=== PATIENT | male | born 1965 | race Caucasian/White ===

== ENCOUNTER 2022-09-12 07:44 | Emergency (ER) | payer OTHER, SELFPAY ==
[2022-09-12 08:03] VITALS: BP 146/61; PULSE 81; RESP 18; TEMP 36.4; O2SAT 97; BMI 59.3
[2022-09-12 08:11] VITALS: BP 146/72; PULSE 77; RESP 20; O2SAT 94
--- NOTE | 2022-09-12 08:16 | XR_ITS ---
WS: [id number] Exam: XR knee RT 3V* [id number] Date/Time of Exam: 09/12/2022 8:23 AM Reason For Exam: fall No acute fracture or dislocation. Moderate degenerative change of the medial lateral joint compartmen ts. Chondrocalcinosis of the lateral meniscus. Marked spurring of the posterior patella. No joint eff usion. XR/XR knee RT 3V* [id number] IMPRESSION: 1. Moderate tricompartmental DJD. No acute fracture or dislocation.
--- NOTE | 2022-09-12 08:16 | XR_ITS ---
WS: [id number] Exam: XR elbow RT min 3V* [id number] Date/Time of Exam: 09/12/2022 8:23 AM Reason For Exam: fall No fracture or dislocation noted. Joint structures are well-maintained. No joint effusion. Normal sof t tissues. XR/XR elbow RT min 3V* [id number] IMPRESSION: 1. Negative right elbow.
[2022-09-12 08:48] LABS: Basophils % 0.6 %; Eosinophils # 0.2 10^3/uL (0.0-0.8); Eosinophils % 3.2 %; Hematocrit 42.1 % (42.0-52.0); Hemoglobin 12.8 g/dL (11.7-16.6); Lymphocytes % 18.3 %; Mean Corpuscular HGB Conc 30.4 g/dL (30.0-36.0); Mean Corpuscular Hemoglobin 25.1 pg (28.0-34.0); Mean Corpuscular Volume 82.5 fl (80-94); Mean Platelet Volume 9.7 fL (7.4-10.4); Monocytes # 0.4 10^3/uL (0.2-0.9); Monocytes % 8.2 %; Neutrophils # 3.64 10^3/uL (1.8-7.7); Neutrophils % 69.3 %; Nucleated Red Blood Cells % 0 %; Platelet Count 279 10^3/cmm (130-400); Red Cell Distribution Width 13.5 % (12.1-15.1); White Blood Count 5.3 10^3/uL (4.0-10.0)
--- NOTE | 2022-09-12 08:53 | PC.NURSE ---
report given to Shreya to assume care
[2022-09-12] MEDS: dexamethasone 10 mg/mL INJ IVP (08:56)
--- NOTE | 2022-09-12 09:03 | W.ED.BACK ---
HPI - Back Pain/Injury General: Chief Complaint: Back Pain/Injury Stated Complaint: fall, leg and arm pain Time Seen by Provider: 09/12/22 07:45 Source: patient Mode of arrival: other (stretcher) History of Present Illness: 57-year-old male presents to the emergency room with complaints of back pain and a fall. He was coming to the emergency room with chronic back pain that had worsened when he was trying get out of his car he got his foot caught in the car and he fell on the ground hurt his right knee and his right elbow. He did not strike his head did not lose consciousness patient is super morbidly obese required the help of multiple staff members to get him off the ground and onto a gurney when he was wheeled to the emergency room. Denies any other injuries or any other problems has not had difficulty with bowel or bladder no difficulty chest or abdominal pain. MD elicited complaint: back pain and fall Pertinent past history: prior back pain Onset (ago): hour(s) Timing: constant Severity: moderate Similar Symptoms Previously: Yes Quality: aching Location: lumbar spine Radiation: none Exacerbating factors: none Relieving factors: none Associated symptoms: Deny abdominal pain, arthralgias, chills, change in bowel habits, difficulty walking, dysuria, fatigue, fecal incontinence, fever(s), hematuria, myalgias, nausea, numbness, syncope, tingling/numbness/burning, urinary frequency, urinary urgency, vomiting or weakness Review of Systems Const: Denies: fever(s), chills, fatigue or malaise ENMT: Denies: throat pain, ear or mastoid pain, nasal discharge or nasal congestion Card: Denies: chest pain or syncope Resp: Denies: dyspnea, productive cough or non-productive cough GI: Denies: abdominal pain, nausea, vomiting, fecal incontinence or change in bowel habits : Denies: dysuria, urinary frequency, urinary urgency or hematuria Skin/Breast: Denies: rash or pruritus Neuro: Denies: difficulty walking PFS ED PFSH: Medical History Chronic back pain Morbid obesity Physical Exam Const: GENERAL APPEARANCE: cooperative and comfortable ORIENTATION/CONSCIOUSNESS: Yes awake, Yes oriented to person, Yes oriented to place and Yes oriented to time HENMT: COMMON NORMALS: normocephalic, atraumatic and hearing grossly normal bilaterally HEAD & SCALP: normocephalic and atraumatic Resp: COMMON NORMALS: normal respiratory effort, No retractions, No use of accessory muscles and clear to auscultation bilaterally AUSCULTATION: clear to auscultation bilaterally Cardio: COMMON NORMALS: regular rate, regular rhythm and No murmurs present (Cardio) RATE: regular rate RHYTHM: regular rhythm GI: COMMON NORMALS: Soft to palpation and No hepatosplenomegaly present AUSCULTATION: Yes normoactive bowel sounds PALPATION: Yes Soft to palpation, No Tenderness to palpation present (GI), No Guarding due to palpation present (GI) and Yes No hepatosplenomegaly present Extremity: COMMON NORMALS: normal to inspection, capillary refill normal, no clubbing, cyanosis or edema, no calf tenderness and no pedal edema Neuro: SENSORIUM/ORIENTATION: Yes oriented to person, Yes oriented to place and Yes oriented to time OTHER: Sensation lower extremities normal dorsal and plantarflex strength 5 of 5 Skin: COMMON NORMALS: no rashes or lesions noted GENERAL SKIN EXAM: no rashes or lesions noted Course Vital Signs: Vital signs: Vital Signs Temperature 97.5 F L 09/12/22 08:03 Pulse Rate 86 09/12/22 10:11 Respiratory Rate 20 H 09/12/22 09:55 Blood Pressure 146/72 09/12/22 08:11 Pulse Oximetry 93 09/12/22 10:11 Oxygen Delivery Me thod 09/12/22 10:11 MDM - Back Pain/Injury Medical Decision Making Patient initially was brought in on a gurney he was able to get up and walk. He was upset that he was not being given what he felt was appropriate narcotics discussed that this is a chronic problem he was demanding Dilaudid states he is allergic to morphine we did give him morphine with some Benadryl he had no allergic reaction at all. He declined other medications. Discharge home on Lyrica prednisone. He states he cannot take NSAIDs so advised him to take Tylenol instructional manager will offer him referral to orthopedic spine surgery Medical Records I reviewed the patient's medical records. Labs I reviewed the patient's lab results. 09/12/22 08:40 09/12/22 08:40 Radiology Impressions Elbow X-Ray 09/12/22 08:16 IMPRESSION: 1. Negative right elbow. Knee X-Ray 09/12/22 08:16 IMPRESSION: 1. Moderate tricompartmental DJD. No acute fracture or dislocation. Laboratory Results WBC 5.3 10^3/uL (4.0-10.0) 09/12/22 08:40 RBC 5.10 10^6/uL (4.1-5.3) 09/12/22 08:40 Hgb 12.8 g/dL (11.7-16.6) 09/12/22 08:40 Hct 42.1 % (42.0-52.0) 09/12/22 08:40 MCV 82.5 fl (80-94) 09/12/22 08:40 MCH 25.1 pg (28.0-34.0) L 09/12/22 08:40 MCHC 30.4 g/dL (30.0-36.0) 09/12/22 08:40 RDW 13.5 % (12.1-15.1) 09/12/22 08:40 Plt Count 279 10^3/cmm (130-400) 09/12/22 08:40 MPV 9.7 fL (7.4-10.4) 09/12/22 08:40 Neut % (Auto) 69.3 % 09/12/22 08:40 Lymph % (Auto) 18.3 % 09/12/22 08:40 [place] % (Auto) 8.2 % 09/12/22 08:40 Eos % (Auto) 3.2 % 09/12/22 08:40 Baso % (Auto) 0.6 % 09/12/22 08:40 Neut # (Auto) 3.64 10^3/uL (1.8-7.7) 09/12/22 08:40 Lymph # (Auto) 1.0 10^3/uL (0.8-4.8) 09/12/22 08:40 [place] # (Auto) 0.4 10^3/uL (0.2-0.9) 09/12/22 08:40 Eos # (Auto) 0.2 10^3/uL (0.0-0.8) 09/12/22 08:40 Baso # (Auto) 0.0 10^3/uL (0.0-0.1) 09/12/22 08:40 Nucleated RBC % (auto) 0 % 09/12/22 08:40 Nucleated RBCs # 0.0 /100WBC 09/12/22 08:40 Sodium 134 mmol/L (136-145) L 09/12/22 08:40 Potassium 4.2 mmol/L (3.5-5.1) 09/12/22 08:40 Chloride 93 mmol/L (98-107) L 09/12/22 08:40 Carbon Dioxide 28 mmol/L (22-29) 09/12/22 08:40 Anion Gap 17.2 (5-19) 09/12/22 08:40 BUN 15 mg/dL (6-20) 09/12/22 08:40 Creatinine 0.9 mg/dL (0.7-1.2) 09/12/22 08:40 GFR Calculation 87.0 mL/min (90-130) L 09/12/22 08:40 Glucose 271 mg/dL (65-115) H 09/12/22 08:40 Calculated Osmolality 288 mOsm/kg (285-295) 09/12/22 08:40 Calcium 8.9 mg/dL (8.5-10.5) 09/12/22 08:40 Discharge Plan Discharge Patient Disposition: Home Clinical Impression: Chronic back pain, Fall, Drug-seeking behavior Condition: Stable Prescriptions: New tizanidine 4 mg capsule 4 mg PO Q6H PRN (Reason: muscle spasticity) Qty: 20 0RF Rx Instructions: do not exceed 3 doses per 24 hrs Lyrica 75 mg capsule 75 mg PO BID Qty: 60 0RF prednisone 20 mg tablet 20 mg PO TID Qty: 15 0RF Rx Instructions: 1 p.o. 3 times daily x3 days, 1 p.o. twice daily x2 days, 1 p.o. daily x2 days Discharge Orders: Discharge ED (Routine); Ordered 09/12/22 Ordered By: Tan Mckeon Discharge Diet: Usual diet Discharge Activity: Increase activity as tolerated Patient Instructions: Opioid Safety, Pain Management Activity Restrictions/Additional Instructions: You are seen today for chronic back pain and a fall. X-rays of your knee and your elbow were negative. Imaging of your back was not done in the emergency room as studies have shown that plain imaging and CT with your presentation. Do recommend that you follow-up with a orthopedic spine surgery instructional manager will make arrangements for you to follow-up with them if you wish. Recommend you begin the steroid taper tomorrow. You were given Lyrica for chronic pain and tizanidine as a muscle relaxer, recommend you begin these today.. Coding Level of Care Code ED [employer] Foreman for Yimi Osorio
[2022-09-12 09:08] LABS: Anion Gap 17.2 (5-19); Blood Urea Nitrogen 15 mg/dL (6-20); Calcium 8.9 mg/dL (8.5-10.5); Carbon Dioxide 28 mmol/L (22-29); Chloride 93 mmol/L (98-107); Glucose 271 mg/dL (65-115); Osmolality Calculated 288 mOsm/kg (285-295); Potassium 4.2 mmol/L (3.5-5.1); Sodium 134 mmol/L (136-145)
--- NOTE | 2022-09-12 09:24 | PC.NURSE ---
pt refusing any medication that is not hydromorphone. pt states he is highly allergic to morphine. physician notified
[2022-09-12] MEDS: diphenhydrAMINE 50 mg/mL SDV 1mL IVP (09:53)
[2022-09-12 09:55] VITALS: RESP 20; O2SAT 93
[2022-09-12] MEDS: morphine 4 mg/mL SDV 1 mL IVP (09:55)
[2022-09-12 10:11] VITALS: PULSE 86; O2SAT 93
--- NOTE | 2022-09-13 09:54 | DCPLANNER ---
Addendum entered by Luanne Horowitz 09/18/22 11:00: safety and security manager attempted to call patient, unable to reach patient, a voicemail was left for patient to return correctional counselor/case manager phone call. Addendum entered by Luanne Horowitz 09/18/22 10:58: late entry: September 13 safety and security manager received the following message from the ortho clinic regarding follow up appointment: attempt made to contact patient - left vm and will mail letter - patients address is in [place] so need to know if he is wanting to be treated here in [place] or if he will be going back home? safety and security manager attempted to call patient, unable to reach patient a voicemail was left for patient to return correctional counselor/case manager phone call. Original Note: safety and security manager had message to schedule a follow up appointment for patient with ortho. safety and security manager sent patients information to the front office staff at general surgery. Patients information will be printed and reviewed. Clinic will call patient with appointment information.
== END 2022-09-12 11:30 | disposition home or self-care (01) ==
PROVIDERS: Emergency Provider Family Medicine
DX: G89.29 Other chronic pain (principal); M54.9 Dorsalgia, unspecified; Z76.5 Malingerer [conscious simulation]
CPT/HCPCS: 36415; 73080; 73562; 80048; 85025; 96374; 96375; 99284; J1100; J1200; J2270